=== PATIENT | female | born 1980 | race Caucasian/White ===

== ENCOUNTER → 2017-08-31 | Outpatient (CLI) | payer OTHER ==
[~2017-08-31] MED LIST: CLAR10TA7 PO; PRED20 PO; TESS200C PO; VENTAER INH; ZITH250T PO
== END ==
LOC: HPND 10:31
PROVIDERS: ATTEND Obstetrics & Gynecology
DX: O09.521 Supervision of elderly multigravida, first trimester (principal); O31.11X2 Continuing pregnancy after spontaneous abortion of one fetus or more, first trimester, fetus 2
CPT/HCPCS: 36415; 76813

== ENCOUNTER → 2017-10-05 | Outpatient (CLI) | payer OTHER | LOC: HPND 10:41 | PROVIDERS: ATTEND Obstetrics & Gynecology | DX: O28.0 Abnormal hematological finding on antenatal screening of mother (principal); O09.522 Supervision of elderly multigravida, second trimester | CPT/HCPCS: 76811 ==